=== PATIENT | female | born 1965 | race Caucasian/White ===

== ENCOUNTER 2016-12-09 15:18 | Emergency (ER) | payer OTHER ==
[~2016-12-09] VITALS: Ht 162.6 cm; Wt 62.8 kg
[~2016-12-09 15:18] MED LIST: ADDERALL20 MG PO; ATIVAN0.5 MG PO; BACTROBAN OINTM22 GM TP; BENTYL10 MG PO; CARBAMAZEPINE200 MG PO; CIPROFLOXACIN500 M1 PO; CLEOCIN300 MG PO; DICYCLOMINE HCL10 MG PO; EPITOL200 MG PO; FLAGYL500 MG PO; FLORASTOR250 MG PO; KENALOG,ARISTOC15 G3 TP; LATUDA40 MG PO; LIDOCAINE20 MG/1 M5 MM; LORAZEPAM0.5 MG PO; METRONIDAZOLE500 MG PO; MOTRIN600 MG PO; MOTRIN800 MG PO; NAPROSYN500 MG PO; NICOTINE PATCH1 EAC1 TD; NORCO 7.5/321 TABLET PO; OLANZAPINE10 MG PO; PEN-VEE K,VEET500 MG PO; PEPTO BISMOL240 ML PO; SEROQUEL50 MG PO; SERTRALINE HCL25 MG PO; STRATTERA60 MG PO; TRILEPTAL600 MG PO; VITAMIN D-32000 UNI2 PO; WELLBUTRIN100 MG PO; ZOLOFT100 M1 PO; ZOLOFT100 MG PO
[2016-12-09 17:03] LABS: HEMATOCRIT 37.1 % (36.0-46.0); MCH 29.9 PG (29.0-34.0); MCV 85.3 FL (83-99); PLATELET COUNT 237 K/uL (156-360); RBC DIS.WIDTH-CV 11.7 % (11.8-14.6); RBC DIS.WIDTH-SD 36.6 % (39-53); RED BLOOD COUNT 4.35 M/uL (3.80-5.20); WHITE BLOOD COUNT 7.9 K/uL (4.1-10.2)
[2016-12-09] MEDS ORDERED: MOTRIN800 MG PO (17:41)
[2016-12-09] MEDS ORDERED: ULTRAM50 MG PO (17:41)
[2016-12-09] MEDS ORDERED: PEN-VEE K,VEET500 MG PO (17:41)
[2016-12-09] MEDS ORDERED: ZOFRAN ODT4 MG PO (17:42)
[2016-12-09 18:13] VITALS: BP 146/85
== END 2016-12-09 18:14 | disposition home or self-care (01) ==
LOC: EME 15:18
PROVIDERS: Nurse Practitioner Family
DX: K04.7 Periapical abscess without sinus (principal); K02.9 Dental caries, unspecified; R00.2 Palpitations; R11.0 Nausea; F17.200 Nicotine dependence, unspecified, uncomplicated
CPT/HCPCS: 85027; 93005; 99281; 99284

== ENCOUNTER → 2017-10-03 | Emergency (ER) | payer OTHER ==
[~2017-10-03] VITALS: Ht 162.6 cm; Wt 64.9 kg
[~2017-10-03] MED LIST changes: +ULTRAM50 MG PO; +ZOFRAN ODT4 MG PO
[2017-10-03 14:27] LABS: APPEARANCE CLEAR ((CLEAR)); BILIRUBIN NEGATIVE; BLOOD NEGATIVE; COLOR STRAW ((YELLOW)); GLUCOSE (STRIP) NEGATIVE; KETONES NEGATIVE; LEUKOCYTES NEGATIVE; NITRITE NEGATIVE; PROTEIN (STRIP) NEGATIVE; SPECIFIC GRAVITY 1.003 (1.000-1.030); UCUL ADDED? NO; UROBILINOGEN 0.2 MG/DL (0.2-1.0)
[2017-10-03 14:38] LABS: HEMATOCRIT 30.7 % (36.0-46.0); MCH 30.4 PG (29.0-34.0); MCHC 35.8 G/DL (30.0-36.0); MCV 84.8 FL (83-99); PLATELET COUNT 179 K/uL (156-360); RBC DIS.WIDTH-CV 11.9 % (11.8-14.6); RBC DIS.WIDTH-SD 36.7 % (39-53); RED BLOOD COUNT 3.62 M/uL (3.80-5.20); WHITE BLOOD COUNT 6.7 K/uL (4.1-10.2)
[2017-10-03 15:02] LABS: AMPHETAMINE PRESUMPTIVE POSITIVE (500 ng/mL); BARBITURATES NEGATIVE (200 ng/mL); BENZODIAZEPINES NEGATIVE (150 ng/mL); BUPRENORPHINE NEGATIVE (10 ng/mL); COCAINE NEGATIVE (150 ng/mL); METHADONE NEGATIVE (200 ng/mL); METHAMPHETAMINE NEGATIVE (500 ng/mL); OPIATES (MORPHINE) NEGATIVE (100 ng/mL); OXYCODONE NEGATIVE (100 ng/mL); PHENCYCLIDINE NEGATIVE (25 ng/mL); PROPOXYPHENE NEGATIVE (300 ng/mL); THC CANNABINOIDS NEGATIVE (50 ng/mL); TRICYCLIC ANTIDEPRESSANTS NEGATIVE (300 ng/mL)
[2017-10-03 15:16] LABS: TROP-I INTERPRETATION NEGATIVE; TROPONIN-I < 0.01 ng/mL (0.0-0.30)
[2017-10-03 15:54] LABS: CARBAMAZEPINE (TEGRETOL) < 2.0 MCG/ML (4.0-12.0); CHLORIDE 98 MEQ/L (99-109); CREATININE 0.6 MG/DL (0.6-1.3); GFR ESTIMATE (CALCULATED) > 59 mL/min/; GLUCOSE 96 mg/dL (70-99); POTASSIUM 3.4 MEQ/L (3.7-5.4); SODIUM 133 MEQ/L (136-147); UREA NITROGEN (BUN) 6 mg/dL (9-23)
[2017-10-03 15:55] LABS: SERUM ETHYL ALCOHOL < 10 mg/dL
[2017-10-03 20:39] VITALS: BP 143/86
== END | disposition home or self-care (01) ==
LOC: EME 13:30
PROVIDERS: Emergency Medicine
DX: F31.12 Bipolar disorder, current episode manic without psychotic features, moderate (principal); R00.2 Palpitations; F60.9 Personality disorder, unspecified; F41.9 Anxiety disorder, unspecified; J45.909 Unspecified asthma, uncomplicated; I10 Essential (primary) hypertension; F17.200 Nicotine dependence, unspecified, uncomplicated; Z88.2 Allergy status to sulfonamides; Z88.8 Allergy status to other drugs, medicaments and biological substances
CPT/HCPCS: 71046; 80048; 80156; 81003; 84484; 84999; 85027; 90839; 93005; 99281; 99284; G0480

== ENCOUNTER 2017-10-11 06:12 | Inpatient (IN) | payer OTHER ==
[~2017-10-11] VITALS: Ht 162.6 cm; Wt 63.3 kg
[2017-10-11 06:51] LABS: HEMATOCRIT 32.6 % (36.0-46.0); MCH 30.7 PG (29.0-34.0); MCHC 36.8 G/DL (30.0-36.0); MCV 83.4 FL (83-99); PLATELET COUNT 196 K/uL (156-360); RBC DIS.WIDTH-CV 11.9 % (11.8-14.6); RBC DIS.WIDTH-SD 36.1 % (39-53); RED BLOOD COUNT 3.91 M/uL (3.80-5.20); WHITE BLOOD COUNT 7.6 K/uL (4.1-10.2)
[2017-10-11 07:19] LABS: QUANTITATIVE HCG < 4.0 MIU/ML
[2017-10-11 07:24] LABS: AMPHETAMINE NEGATIVE (500 ng/mL); BARBITURATES NEGATIVE (200 ng/mL); BENZODIAZEPINES NEGATIVE (150 ng/mL); BUPRENORPHINE NEGATIVE (10 ng/mL); COCAINE NEGATIVE (150 ng/mL); METHADONE NEGATIVE (200 ng/mL); METHAMPHETAMINE NEGATIVE (500 ng/mL); OPIATES (MORPHINE) NEGATIVE (100 ng/mL); OXYCODONE NEGATIVE (100 ng/mL); PHENCYCLIDINE NEGATIVE (25 ng/mL); PROPOXYPHENE NEGATIVE (300 ng/mL); THC CANNABINOIDS NEGATIVE (50 ng/mL); TRICYCLIC ANTIDEPRESSANTS NEGATIVE (300 ng/mL)
[2017-10-11 08:04] LABS: CHLORIDE 100 MEQ/L (99-109); CREATININE 0.7 MG/DL (0.6-1.3); GFR ESTIMATE (CALCULATED) > 59 mL/min/; GLUCOSE 102 mg/dL (70-99); POTASSIUM 4.2 MEQ/L (3.7-5.4); SERUM ETHYL ALCOHOL < 10 mg/dL; SODIUM 135 MEQ/L (136-147); UREA NITROGEN (BUN) 7 mg/dL (9-23)
[2017-10-11 12:11] VITALS: BP 154/81
[2017-10-11 17:13] VITALS: BP 151/74
[2017-10-12 08:03] VITALS: BP 131/60
[2017-10-12 15:25] VITALS: BP 148/74
[2017-10-13 07:52] VITALS: BP 140/82
[2017-10-13 15:56] VITALS: BP 136/73
[2017-10-14] MEDS ORDERED: LISINOPRIL10 MG PO (09:08)
[2017-10-14 10:03] VITALS: BP 143/75
[2017-10-14 14:47] VITALS: BP 155/84
[2017-10-15] MEDS ORDERED: CARBAMAZEPINE200 MG PO ×2 (08:49)
[2017-10-15] MEDS ORDERED: LISINOPRIL10 MG PO (08:49)
[2017-10-15] MEDS ORDERED: SEROQUEL100 MG PO (08:49)
[2017-10-15 09:13] VITALS: BP 133/73
== END 2017-10-15 13:35 | disposition home or self-care (01) | DRG 885 ==
LOC: EME → EDBD 06:12 → EME 06:12 → 1WEST 10:14 → EDOF 10:14 → 1WEST 10:14 → ENRESERV 12:07 → 1WEST 12:08
DX: F31.62 Bipolar disorder, current episode mixed, moderate (principal); F60.9 Personality disorder, unspecified; I10 Essential (primary) hypertension; F17.200 Nicotine dependence, unspecified, uncomplicated
CPT/HCPCS: 80048; 84702; 85027; 90839; 97150 GO; 97165 GO; 99281; 99284; G0480; Q0177

== ENCOUNTER 2017-11-25 15:20 | Emergency (ER) | payer OTHER ==
[~2017-11-25] VITALS: Ht 162.6 cm; Wt 55.0 kg
[~2017-11-25 15:20] MED LIST changes: +LISINOPRIL10 MG PO; +SEROQUEL100 MG PO
[2017-11-25 16:34] LABS: APPEARANCE CLEAR ((CLEAR)); BILIRUBIN NEGATIVE; BLOOD SMALL; COLOR STRAW ((YELLOW)); GLUCOSE (STRIP) NEGATIVE; KETONES NEGATIVE; LEUKOCYTES NEGATIVE; NITRITE NEGATIVE; PROTEIN (STRIP) NEGATIVE; SPECIFIC GRAVITY 1.006 (1.000-1.030); UROBILINOGEN 0.2 MG/DL (0.2-1.0)
[2017-11-25 16:43] LABS: BACTERIA RARE /HPF; EPITHELIAL CELLS RARE /HPF; MUCUS TRACE /LPF; RED BLOOD CELLS 0-5 /HPF (0-5); WHITE BLOOD CELLS 0-5 /HPF (0-5)
[2017-11-25 16:56] VITALS: BP 155/130
[2017-11-25 16:56] LABS: AMPHETAMINE PRESUMPTIVE POSITIVE (500 ng/mL); BARBITURATES NEGATIVE (200 ng/mL); BENZODIAZEPINES NEGATIVE (150 ng/mL); BUPRENORPHINE NEGATIVE (10 ng/mL); COCAINE NEGATIVE (150 ng/mL); METHADONE NEGATIVE (200 ng/mL); METHAMPHETAMINE NEGATIVE (500 ng/mL); OPIATES (MORPHINE) NEGATIVE (100 ng/mL); OXYCODONE NEGATIVE (100 ng/mL); PHENCYCLIDINE NEGATIVE (25 ng/mL); PROPOXYPHENE NEGATIVE (300 ng/mL); THC CANNABINOIDS NEGATIVE (50 ng/mL); TRICYCLIC ANTIDEPRESSANTS NEGATIVE (300 ng/mL)
== END 2017-11-25 17:00 | disposition home or self-care (01) ==
LOC: EME 15:20
PROVIDERS: Nurse Practitioner Family
DX: F31.12 Bipolar disorder, current episode manic without psychotic features, moderate (principal); I10 Essential (primary) hypertension; E03.9 Hypothyroidism, unspecified; J45.909 Unspecified asthma, uncomplicated; K21.9 Gastro-esophageal reflux disease without esophagitis; Z88.2 Allergy status to sulfonamides; Z88.8 Allergy status to other drugs, medicaments and biological substances; Z87.891 Personal history of nicotine dependence
CPT/HCPCS: 80048; 81003; 84999; 85027; 90837; 99281; 99285; G0480